=== PATIENT | female | born 1990 | race Caucasian/White ===

== ENCOUNTER 2019-01-04 14:33 | Emergency (ER) | payer BC, MEDICAID ==
[~2019-01-04] VITALS: Ht 149.9 cm; Wt 83.8 kg
[~2019-01-04 14:33] MED LIST: FERR-31 PO; IBUP-1542 PO; PRENAT PO
[2019-01-04 14:36] VITALS: Ht 149.9 cm; Wt 83.8 kg
[2019-01-04] MEDS ORDERED: ONDANSETRON 4 MG INJ IV STA (15:29)
[2019-01-04] MEDS ORDERED: FAMOTIDINE 20 MG INJ IV STA (15:29)
[2019-01-04] MEDS ORDERED: morphine 2 MG INJ IV STA (15:29)
[2019-01-04] MEDS ORDERED: SOD CHLORIDE 0.9% 1,000 ML IV STA (15:29)
[2019-01-04] MEDS ORDERED: METO10TA92 PO (19:02)
[2019-01-04] MEDS ORDERED: CEPH-443 PO (19:04)
[2019-01-04 19:12] VITALS: BP 110/73; PULSE 75; RESP 18
--- NOTE | 2019-01-04 19:23 | ERD ---
ER Documentation Chief Complaint Chief Complaint headcahe ,abd pain with vomiting x 4 days , blood in vomit HPI 28-year-old female presents with vomiting for last 4 days. She also has epigastric abdominal pain. She has not had her menstrual period for approximately 8 weeks. She did have 2- test at her primary care doct or. She denies vaginal bleeding, urinary complaints, lower abdominal pain. Vomit is nonbilious nonbloody. Her doctor apparently ordered an ultrasound as well but that does not take place for 2 weeks according to patient. ROS All systems reviewed and are negative except as per history of present illness. Medications Home Meds Active Scripts Cephalexin* (Keflex*) 500 Mg Capsule, 500 MG PO QID for 5 Days, CAP Prov:YING SUERO MD 01/04/19 Metoclopramide* (Reglan*) 10 Mg Tablet, 10 MG PO Q6 PRN for NAUSEA AND/OR VO MITING, #15 TAB Prov:YING SUERO MD 01/04/19 Ibuprofen* (Ibuprofen*) 600 Mg Tab, 600 MG PO Q6, #20 TAB 0 Refills Prov:SIERRA CORNELIUS MD 06/23/15 Reported Medications Ferrous Sulfate (Iron Supplement) 1 Tab Tablet, 1 TAB PO DAILY 04/17/15 Multivit/Min/Fol Ac/Iron/Pren* ( S*) 1 Tab Tab, 1 TAB PO DAILY, TAB 04/17/15 Allergies Allergies: Coded Allergies: No Known Allergy (Unverified , 01/04/19) PMhx/Soc Medical and Surgical Hx: pt denies Medical Hx, pt denies Surgical Hx Hx Alcohol Use: No Hx Substance Use: No Hx Tobacco Use: No FmHx Family History: No diabetes, No coronary disease, No other Physical Exam Vitals Vital Signs Date Temp Pulse Resp B/P (MAP) Pulse Ox O2 O2 Flow FiO2 Time Delivery Rate 01/04/19 75 18 110/73 98 Room Air 19:12 (85) 01/04/19 98.1 104 18 151/92 98 14:36 (111) Physical Exam Const: No acute distress Head: Atraumatic Eyes: Normal Conjunctiva ENT: Normal External Ears, Nose and Mouth. Neck: Full range of motion. No meningismus. Resp: Clear to auscultation bilaterally Cardio: Regular rate and rhythm, no murmurs Abd: Soft, minimal epigastric tenderness. No Smiley sign and no tenderness McBurney's point. No rebound or masses. Non distended. Normal bowel sounds Skin: No petechiae or rashes Back: No midline or flank tenderness Ext: No cyanosis, or edema Neur: Awake and alert Psych: Normal Mood and Affect Result Diagram: 01/04/19 1605 01/04/19 1605 Results 24 hrs Laboratory Tests Test 01/04/19 15:50 01/04/19 15:56 01/04/19 16:05 Urine Color YELLOW Urine Clarity SLIGHTLY CLOUDY Urine pH 5.0 Urine Specific [place] 1.019 Urine Ketones NEGATIVE mg/dL Urine Nitrite NEGATIVE mg/dL Urine Bilirubin NEGATIVE mg/dL Urine Urobilinogen NEGATIVE mg/dL Urine Leukocyte Esterase 3+ Juan/ul Urine Microscopic RBC 4 /HPF Urine Microscopic WBC 24 /HPF Urine Squamous Epithelial Cells MODERATE /HPF Urine Hemoglobin NEGATIVE mg/dL Urine Glucose NEGATIVE mg/dL Urine Total Protein NEGATIVE mg/dl POC Beta HCG, Qualitative POSITIVE White Blood Count 9.7 10^3/ul Red Blood Count 4.44 10^6/ul Hemoglobin 13.4 g/dl Hematocrit 40.4 % Mean Corpuscular Volume 91.0 fl Mean Corpuscular Hemoglobin 30.2 pg Mean Corpuscular 33.2 g/dl Hemoglobin Concent Red Cell Distribution Width 12.4 % Platelet Count 302 10^3/UL Mean Platelet Volume 9.7 fl Immature Granulocytes % 0.300 % Neutrophils % 64.1 % Lymphocytes % 25.7 % Monocytes % 8.6 % Eosinophils % 1.0 % Basophils % 0.3 % Nucleated Red Blood Cells % 0.0 /100WBC Immature Granulocytes # 0.030 10^3/ul Neutrophils # 6.2 10^3/ul Lymphocytes # 2.5 10^3/ul Monocytes # 0.8 10^3/ul Eosinophils # 0.1 10^3/ul Basophils # 0.0 10^3/ul Nucleated Red Blood Cells # 0.0 10^3/ul Sodium Level 139 mmol/L Potassium Level 4.3 mmol/L Chloride Level 103 mmol/L Carbon Dioxide Level 26 mmol/L Anion Gap 10 Blood Urea Nitrogen 9 mg/dl Creatinine 0.78 mg/dl Est Glomerular Filtrat > 60 mL/min Rate mL/min Glucose Level 105 mg/dl Calcium Level 10.0 mg/dl Total Bilirubin 0.6 mg/dl Direct Bilirubin 0.00 mg/dl Indirect Bilirubin 0.6 mg/dl Aspartate Amino 23 IU/L Transf (AST/SGOT) Alanine 28 IU/L Aminotransferase (ALT/SGPT) Alkaline Phosphatase 77 IU/L Total Protein 8.7 g/dl Albumin 4.6 g/dl Globulin 4.10 g/dl Albumin/Globulin Ratio 1.12 Lipase 48 U/L Beta HCG, Quantitative 70038.0 mIU/ml Current Medications Medications Dose Sig/Laura Start Time Status Last (Trade) Ordered Route PRN Stop Time Admin Dose Reason Admin Sodium 1,000 ml @ Q1H STAT 01/04/19 DC 01/04/19 Chloride 1,000 mls/hr IV 15:29 15:54 01/04/19 16:28 Morphine 2 mg ONCE STAT 01/04/19 DC Sulfate IV 15:29 (morphine) 01/04/19 15:30 Ondansetron 4 mg ONCE STAT 01/04/19 DC 01/04/19 HCl (Zofran IV 15:29 15:55 Inj) 01/04/19 15:30 Famotidine 20 mg ONCE STAT 01/04/19 DC 01/04/19 (Pepcid Iv) IV 15:29 15:55 01/04/19 15:31 Procedures/MDM CBC and CMP showed no acute abnormalities. Patient initially given morphine 2 more grams IV, Zofran formal grams IV, 1 L normal saline IV. hCG positive. Quantitative hCG 23,900. PROCEDURE: US OB with transvaginal. CLINICAL INDICATION: Pain, vomiting. Clinical estimated gestational age is 4 weeks 2 days with estimated date of delivery 09/11/2019 TECHNIQUE: Transabdominal and transvaginal views of the pelvis are available for review. COMPARISON: No prior studies are available for comparison. FINDINGS: Iroquois-rump length: 0.53 cm heart rate: 116 beats per minute Ultrasound estimated gestational age: 6 weeks 2 days Estimated date of delivery: 08/28/2019 There is a 1 cm oval area of decreased echogenicity suggestive of an intramural fibroid in the right anterior lower uterine body. Small Nabothian cysts in the cervix. No ovarian or adnexal mass lesion is seen. There is a 1.6 cm likely exophytic right corpus luteum. Color flow and spectral analysis demonstrates arterial and venous flow in both ovaries. There is no free fluid. IMPRESSION: Single live intrauterine with an estimated gestational age of 6 weeks 2 days based on ultrasound measurement. Suggestive of small uterine fibroid noted above. Please see above. RPTAT: HJES .Nito Nichols MD, MD Date Time Electronically viewed and signed by .Nito Nichols MD, MD on 01/04/2019 18:54 .S/ CC: YING SUERO MD [id number] PROCEDURE: US Abdomen (right upper quadrant). CLINICAL INDICATION: Right upper quadrant abdomen pain. TECHNIQUE: Multiple real-time longitudinal and transverse images of the right upper quadrant of the abdomen were acquired utilizing a curved array transducer. Images were reviewed on a high-resolution PACS workstation. COMPARISON: None FINDINGS: The liver is normal in size and increased in echogenicity. There is no focal hepatic lesion. Color Doppler and pulsed Doppler sonography demonstrate normal antegrade flow in the portal vein. The gallbladder demonstrates cholelithiasis. The bile ducts are normal with the common bile duct measuring 2.4 mm in diameter. The visualized portions of the pancreas are unremarkable with obscuration of the tail of the pancreas. No free fluid is present. The right kidney measures 9.7 cm. There is normal echogenicity of the right kidney. There is no perinephric fluid collection. No hydronephrosis, mass, or calculus is seen. IMPRESSION: Hepatic steatosis. Underlying hepatocellular disease cannot be excluded. Cholelithiasis. No biliary dilatation. RPTAT: QQ Physician Alfredo Date Time Electronically viewed and signed by Physician Alfredo on 01/04/2019 16:41 RD/ CC: YING SUERO MD Patient had a benign abdomen on serial exam. Results were given to patient. Patient's presents with epigastric pain, nausea vomiting. She has gallstones on ultrasound but symptoms do not sound like biliary colic and there is no signs of cholecystitis, bili obstruction, pancreatitis, complications related to hepatobiliary disease. She has incidental positive with normal- appearing 6-week intrauterine . This may be the cause of her vomiting. She has findings suggestive of UTI and urine will treat with Keflex for this although there is moderate epithelial cells as well. Patient will be treated with Keflex, Reglan, vitamins, recommendations for OB follow-up, return precautions for vaginal bleeding, vomiting despite treatment, lower abdominal pain, new worsening symptoms with primary care doctor and OB as well. Current signs or symptoms do not suggest ectopic , appendicitis, surgical abdomen, sepsis, additional complications. The patient was stable with no new complaints during the ER course. Clinically, there is no current evidence to suggest meningitis, sepsis, acute abdomen, pneumonia, stroke, acute coronary syndrome, pulmonary embolism, aortic dissection or any other emergent condition appearing to require further evaluation or hospitalization. Patient counseled regarding my diagnostic impression and care plan. Prior to discharge all questions answered. Pt agrees with treatment plan and understands strict return precautions. Pt is instructed to follow up with primary care provider within 24- 48 hours. Precautionary instructions provided including instructions to return to the ER if not improving or for any worsening or changing symptoms or concerns. Disclaimer: Inadvertent spelling and grammatical errors are likely due to EHR/dictation software use and do not reflect on the overall quality of patient care. Also, please note that the electronic time recorded on this note does not necessarily reflect the actual time of the patient encounter. Departure Diagnosis: Primary Impression: Vomiting Additional Impressions: Abdominal pain Condition: Stable Patient Instructions: Urinary Tract Infections in Women, Gallstones, Abdominal Pain, Early , Vomiting (6Y-Adult) Referrals: [facility] [place] [id number] [address] OFFICE FAX ALEK ASHLEY [address] [place] [address] DR. OLIVIER, [place] [address] [place] [address] DR MÉNDEZ, [facility] [address] [address] [facility], [address], [place] [address] DR BALDWIN, [facility] [address] [address] [facility], [place] [address] [facility] [address] [place] [address] [facility] [id number] - DR CHI, LAISHA [address], [facility] [place] [address] [address] E[place]AVARRIA, [place] [address] [facility]. [address], [place] [address] DR RIVAS, [facility] [address] [place] [address] Additional Instructions: Examinations confirm 6-week normal-appearing today. Vomiting may be due to . Also noted to be gallstones and urinary tract infection. We will treat for this. See primary doctor and OB for follow-up. Recheck otherwise for bleeding, fevers, worsening abdominal pain, new or worsening symptoms. YING SUERO MD Jan 04, 2019 19:23
== END 2019-01-04 19:13 | disposition home or self-care (01) ==
LOC: FTE 14:33
DX: R11.2 Nausea with vomiting, unspecified (principal); R10.2 Pelvic and perineal pain; Z33.1 Pregnant state, incidental
CPT/HCPCS: 36415; 76705; 76801; 76817; 80053; 81001; 81025; 83690; 84702; 85025; 96361; 96374; 96375; 99285; J2405; J7030; J2270

== ENCOUNTER 2019-01-20 18:40 | Emergency (ER) | payer BC, MEDICAID ==
[~2019-01-20] VITALS: Ht 127 cm; Wt 84.0 kg
[~2019-01-20 18:40] MED LIST changes: +ACET500C5 PO; +CEPH-443 PO; +METO10TA92 PO
[2019-01-20 18:50] VITALS: Ht 127 cm; Wt 84.0 kg
[2019-01-20] MEDS ORDERED: SOD CHLORIDE 0.9% 1,000 ML IV STA (20:10)
[2019-01-20] MEDS ORDERED: FAMOTIDINE 20 MG INJ IV STA (20:10)
--- NOTE | 2019-01-20 20:18 | ERD ---
ER Documentation Chief Complaint Chief Complaint C/O AP, LT LOWER BACK PAIN AND POWERS X2 DAYS, 8 WEEKS PREG HPI This is a 28-year-old female patient presents emergency room with complaint of right sided abdominal pain, left lower back pain, headache, multiple episodes of vomiting and diarrhea over the last several days. Decreased oral intake. Patient denies fevers, denies dysuria. Patient is 8 weeks , no care. G2, P1 no complications with prior , no surgical history. No chronic medical conditions. ROS All systems reviewed and are negative except as per history of present illness. Medications Home Meds Active Scripts Cephalexin* (Keflex*) 500 Mg Capsule, 500 MG PO BID for 3 Days, #6 CAP Prov:NIDHI LÓPEZ NP 01/20/19 Acetaminophen* (Tylophen*) 500 Mg Capsule, 2 CAP PO Q8H PRN for PAIN AND OR ELEVATED TEMP, #20 CAP Prov:NIDHI LÓPEZ NP 01/20/19 Cephalexin* (Keflex*) 500 Mg Capsule, 500 MG PO QID for 5 Days, CAP Prov:YING SUERO MD 01/04/19 Metoclopramide* (Reglan*) 10 Mg Tablet, 10 MG PO Q6 PRN for NAUSEA AND/OR VOMITING, #15 TAB Prov:YING SUERO MD 01/04/19 Ibuprofen* (Ibuprofen*) 600 Mg Tab, 600 MG PO Q6, #20 TAB 0 Refills Prov:SIERRA CORNELIUS MD 06/23/15 Reported Medications Ferrous Sulfate (Iron Supplement) 1 Tab Tablet, 1 TAB PO DAILY 04/17/15 Multivit/Min/Fol Ac/Iron/Pren* ( S*) 1 Tab Tab, 1 TAB PO DAILY, TAB 04/17/15 Allergies Allergies: Coded Allergies: No Known Allergy (Unverified , 01/04/19) PMhx/Soc Medical and Surgical Hx: pt denies Medical Hx, pt denies Surgical Hx Hx Alcohol Use: No Hx Substance Use: No Hx Tobacco Use: No Smoking Status: Never smoker FmHx Family History: No diabetes, No coronary disease, No other Physical Exam Vitals Vital Signs Date Temp Pulse Resp B/P (MAP) Pulse Ox O2 O2 Flow FiO2 Time Delivery Rate 01/20/19 98.0 88 18 106/59 100 Room Air 22:19 (75) 8/13/19 98.7 90 20 131/69 99 18:50 (89) Physical Exam Const: No acute distress Head: Atraumatic Eyes: Normal Conjunctiva, PERRL ENT: Normal External Ears, Nose and Mouth. Pharynx pink, moist, no lesions or exudate Neck: Full range of motion. No meningismus. No lymphadenopathy Resp: Clear to auscultation bilaterally Cardio: Regular rate and rhythm, no murmurs Abd: Soft, non distended. Normal bowel sounds, +cuenca, +mcburney, no guarding, no rebound Skin: No petechiae or rashes Back: No midline or flank tenderness, no CVT Ext: No cyanosis, or edema Neur: Awake and alert, clear speech, steady gait Psych: Normal Mood and Affect Result Diagram: 01/20/19205501/20/192055 Results 24 hrs Laboratory Tests Test 01/20/19 20:07 01/20/19 20:16 01/20/19 20:56 Urine Color YELLOW Urine Clarity SLIGHTLY CLOUDY Urine pH 6.0 Urine Specific [place] 1.021 Urine Ketones NEGATIVE mg/dL Urine Nitrite NEGATIVE mg/dL Urine Bilirubin NEGATIVE mg/dL Urine Urobilinogen NEGATIVE mg/dL Urine Leukocyte Esterase 2+ Juan/ul Urine Microscopic RBC 1 /HPF Urine Microscopic WBC 5 /HPF Urine Squamous Epithelial Cells FEW /HPF Urine Hemoglobin NEGATIVE mg/dL Urine Glucose NEGATIVE mg/dL Urine Total Protein NEGATIVE mg/dl POC Beta HCG, Qualitative POSITIVE White Blood Count 12.7 10^3/ul Red Blood Count 4.12 10^6/ul Hemoglobin 12.5 g/dl Hematocrit 38.0 % Mean Corpuscular Volume 92.2 fl Mean Corpuscular Hemoglobin 30.3 pg Mean Corpuscular 32.9 g/dl Hemoglobin Concent Red Cell Distribution Width 12.3 % Platelet Count 288 10^3/UL Mean Platelet Volume 9.3 fl Immature Granulocytes % 0.400 % Neutrophils % 67.1 % Lymphocytes % 23.1 % Monocytes % 7.8 % Eosinophils % 1.2 % Basophils % 0.4 % Nucleated Red Blood Cells % 0.0 /100WBC Immature Granulocytes # 0.050 10^3/ul Neutrophils # 8.5 10^3/ul Lymphocytes # 2.9 10^3/ul Monocytes # 1.0 10^3/ul Eosinophils # 0.2 10^3/ul Basophils # 0.1 10^3/ul Nucleated Red Blood Cells # 0.0 10^3/ul Sodium Level 137 mmol/L Potassium Level 4.0 mmol/L Chloride Level 100 mmol/L Carbon Dioxide Level 27 mmol/L Anion Gap 10 Blood Urea Nitrogen 9 mg/dl Creatinine 0.69 mg/dl Est Glomerular Filtrat > 60 mL/min Rate mL/min Glucose Level 89 mg/dl Calcium Level 9.7 mg/dl Total Bilirubin 0.4 mg/dl Direct Bilirubin 0.00 mg/dl Indirect Bilirubin 0.4 mg/dl Aspartate Amino 16 IU/L Transf (AST/SGOT) Alanine 16 IU/L Aminotransferase (ALT/SGPT) Alkaline Phosphatase 63 IU/L Total Protein 8.1 g/dl Albumin 4.2 g/dl Globulin 3.90 g/dl Albumin/Globulin Ratio 1.07 Lipase 50 U/L Current Medications Medications Dose Sig/Laura Start Time Status Last (Trade) Ordered Route PRN Stop Time Admin Dose Reason Admin Sodium 1,000 ml @ Q1H STAT 01/20/19 DC 01/20/19 Chloride 1,000 mls/hr IV 20:10 21:11 01/20/19 21:09 Famotidine 20 mg ONCE STAT 01/20/19 DC 01/20/19 (Pepcid Iv) IV 20:10 21:11 01/20/19 20:14 Procedures/MDM PROCEDURES/MDM DIAGNOSTIC IMAGING: Read by radiologist. IMPRESSION: There is sludge versus cholelithiasis within the gallbladder. Cannot entirely exclude artifact. The gallbladder wall is not thickened. Mild hepatomegaly. Hepatic steatosis. Underlying hepatocellular disease cannot be excluded. No biliary dilatation. LAB INTERPRETATION: Slight leukocytosis, no anemia, no electrolyte disturbance, normal kidney function, no transaminitis, normal lipase UA +2 leukocytosis, + WBC, no hematuria -Medications: NS, Pepcid Patient tolerated medication well with no adverse reactions. Patient reported improvement in pain. -Consultation: Dr. Owens MDM: CBC: no e/o of systemic infection or severe anemia CMP: no e/o severe acidosis, alkalosis, renal failure, diabetic ketoacidosis, liver disease Lipase: no e/o pancreatitis Urine: bacteuria, no hematuria Diagnostics: US Gallbladder- sludge vs cholelithiasis, no cholecystitis or choledocholithiasis This patient appears to have continuing UTI, she was treated 3 weeks ago for the same. Patient has been instructed to follow-up with her OB for continued management of positive leukocytes in urine. Urine has been sent for culture to confirm bacterial infection versus contamination. There is low suspicion for pyelonephritis, vaginitis, STI, or interstitial cystitis due to absence of clinical findings that would support a diagnosis more serious than uncomplicated UTI. These diagnoses have been considered and excluded clinically. Nonetheless, it is understood by both the patient and provider that no clinical or diagnostic assessment can entirely exclude such diseases. Patient has been instructed on signs and symptoms of concern or with evolving condition with strict instructions to return to ED for reevaluation. DISPOSITION and PLAN: RX: Tylenol, Keflex The patient has been discharge home to follow-up with community physician. Departure Diagnosis: Primary Impression: Cholelithiasis affecting in first trimester, antepartum Additional Impression: UTI (urinary tract infection) Urinary tract infection type: acute cystitis Hematuria presence: without hematuria Qualified Codes: N30.00 - Acute cystitis without hematuria Condition: Stable NIDHI LÓPEZ NP Jan 20, 2019 20:18
[2019-01-20 22:19] VITALS: BP 106/59; PULSE 88; RESP 18
== END 2019-01-20 22:21 | disposition home or self-care (01) ==
LOC: FTE 18:40
DX: O99.611 Diseases of the digestive system complicating pregnancy, first trimester (principal); K80.20 Calculus of gallbladder without cholecystitis without obstruction; O23.11 Infections of bladder in pregnancy, first trimester; Z3A.08 8 weeks gestation of pregnancy
CPT/HCPCS: 76705; 80053; 81001; 81025; 83690; 85025; 87086; 96361; 96374; 99285; J7030; Z7610